=== PATIENT | male | born 2000 | race Hispanic/Latino ===

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

== ENCOUNTER 2022-05-30 16:55 | Emergency (ER) | payer OTHER ==
[~2022-05-30] VITALS: Ht 182.9 cm; Wt 97.5 kg
[2022-05-30] MEDS ORDERED: IBUPROFEN 600 MG TABLET PO ONE (17:30)
[2022-05-30] MEDS ORDERED: ACETAMINOPHEN 500 MG TABLET ONE (18:55)
[2022-05-30] MEDS ORDERED: DEXAMETHASONE SOD PHOSPHATE 4 MG/ML 1ML VIAL IM ONE (19:00)
[2022-05-30] MEDS ORDERED: ACETAMINOPHEN 500 MG TABLET PO ONE (19:00)
[2022-05-30] MEDS ORDERED: PENICILLIN G BENZATHINE LA 1.2 MILUNITS/2 ML SYG IM ONE (19:00)
[2022-05-30] MEDS ORDERED: IBUP-2070 PO (19:03)
[2022-05-30 19:46] VITALS: BP 135/62
== END 2022-05-30 20:03 | disposition home or self-care (01) ==
LOC: EDH 16:55
DX: J02.0 Streptococcal pharyngitis (principal); Z20.822 Contact with and (suspected) exposure to COVID-19; Z79.1 Long term (current) use of non-steroidal anti-inflammatories (NSAID)
CPT/HCPCS: 99284; 87635; 87880; 87804 ×2; 96372 ×2; J0561; J1100; C9803